=== PATIENT | male | born 1965 | race Caucasian/White ===

== ENCOUNTER 2017-07-09 13:49 | Emergency (ER) | payer OTHER ==
[~2017-07-09] VITALS: Ht 172.7 cm; Wt 84.0 kg
[2017-07-09 13:54] VITALS: BP 128/84; PULSE 90; RESP 20; TEMP 97.5; O2SAT 97
--- NOTE | 2017-07-09 14:20 | PD ---
HPI Chief Complaint: Injury Time Seen by Provider: 14:20 Travel History International Travel<30 days: No Contact w/Intl Traveler<30days: No Traveled to known affect area: No History of Present Illness HPI 52-year-old male presents to the emergency Department with complaint of right knee pain after jumping on a trampoline and his knee giving out. He said it looks as if his knee dislocated and then popped back into place. Denies paresthesias, loss of sensation, decreased range of motion to the affected extremity. Has been ambulatory on the affected extremity, but minimally. Has not taken any medications to alleviate his symptoms. Has applied ice for symptom management. Has no other medical complaints. No known allergies. No other modifying factors or associated signs and symptoms. PFSH Past Medical History Hx Anticoagulant Therapy: No Cardiovascular Problems: No Chemotherapy: No Cerebrovascular Accident: No Diabetes: No Respiratory: No Social History Tobacco Use: No Allergies-Medications (Allergen,Severity, Reaction): Coded Allergies: No Known Allergies (Unverified , 07/09/17) Reported Meds & Prescriptions Reported Meds & Active Scripts Active Ibuprofen 800 Mg Tab 800 Mg PO Q6HR PRN Review of Systems Except as stated in HPI: all other systems reviewed are Neg Physical Exam Narrative GENERAL: Well-nourished, well-developed male patient, in no acute distress; afebrile, nontoxic-appearing SKIN: Warm and dry. HEAD: Atraumatic. Normocephalic. EYES: Pupils equal and round. No scleral icterus. No injection or drainage. ENT: Mucosa pink and moist. Airway patent. NECK: Trachea midline. CARDIOVASCULAR: Regular rate. RESPIRATORY: No accessory muscle use. GASTROINTESTINAL: Flat. MUSCULOSKELETAL: Right knee nonedematous, nonerythematous, and without ecchymosis; full range of motion and flexion to 90; point tenderness to the lateral aspect; joint stable with negative drawer test; no obvious deformity. Right Lower extremity is supple and non-tense with 2+ pedal pulse and sensory intact and without erythema or edema. No edema. No cyanosis. No clubbing. NEUROLOGICAL: Awake and alert. Oriented 3. No obvious cranial nerve deficits. Motor grossly within normal limits. Normal speech. PSYCHIATRIC: Appropriate mood and affect; insight and judgment normal. Data Data Last Documented VS Vital Signs Date Time Temp Pulse Resp B/P (MAP) Pulse Ox O2 Delivery O2 Flow Rate FiO2 07/09/17 13:54 97.5 90 20 128/84 (99) 97 Room Air Orders Orders Knee, Complete (4vws) (07/09/17 14:16) Crutches (07/09/17 14:16) Ketorolac Inj (Toradol Inj) (07/09/17 14:30) Ice/Cold Pack (07/09/17 14:20) MDM Medical Decision Making Medical Screen Exam Complete: Yes Emergency Medical Condition: Yes Medical Record Reviewed: Yes Differential Diagnosis Knee strain, meniscus tear, ACL tear, knee fracture, knee dislocation Narrative Course 52-year-old male with right knee injury. Toradol administered in the ER. Right knee x-ray ordered. 1525: Right knee x-ray with no acute findings. The patient declined knee brace and crutches. Said he is going to buy his own at the drugstore. Ibuprofen prescribed for home. Inserted patient to follow up with orthopedics. Instructed patient to follow up with primary care provider. Patient verbalizes understanding and agreement with treatment plan. Patient is medically cleared and stable for discharge. Discussed reasons to return to the emergency department. Patient agrees with treatment plan. The patients vital signs are stable and the patient is stable for outpatient follow-up and treatment. Patient discharged home, stable and in no acute distress. Diagnosis Primary Impression: Right knee injury Qualified Codes: S89.91XA - Unspecified injury of right lower leg, initial encounter Referrals: Primary Care Physician Patient Instructions: Crutch Instructions (ED), General Instructions, Knee Sprain (ED) Departure Forms: Tests/Procedures Additional Instructions: Tylenol or ibuprofen as needed and as directed to reduce pain and inflammation Rest, ice, compress, and elevate extremity to decrease pain and inflammation Knee brace for support Crutches for support Avoid aggravating activity; increase activity as tolerated Follow-up with primary care provider Follow-up with orthopedics Return to the emergency department immediately with worsening symptoms Med/Other Pt SpecificInfo: Prescription(s) given Scripts Ibuprofen (Ibuprofen) 800 Mg Tab 800 MG PO Q6HR Y for PAIN, #40 TAB 0 Refills Prov: Gem Bailey 07/09/17 Disposition: 01 DISCHARGE HOME Condition: Stable Gem Bailey Jul 09, 2017 14:20
[2017-07-09] MEDS ORDERED: KETOROLAC TROMETHAMINE 60 MG/2 ML (IM) VIAL IM ONE (14:30)
--- NOTE | 2017-07-09 15:15 | RADRPT ---
EXAM DATE/TIME: 07/09/2017 14:27 [facility] COMPARISON: No previous studies available for comparison. INDICATIONS : Patient injured right knee trampolining , he states that he landed on knee and it flexed laterally. MEDICAL HISTORY : None. SURGICAL HISTORY : None. ENCOUNTER: Initial ACUITY: Unknown PAIN SCORE: 9/10 LOCATION: Right knee FINDINGS: Four view examination of the right knee demonstrates no evidence of fracture or dislocation. Bony mi neralization is normal. The articular surfaces are intact. The suprapatellar soft tissues have a no rmal configuration. CONCLUSION: Unremarkable examination of the right knee. Luisa Hill MD on July 09, 2017 at 15:13 Board Certified Radiologist. This report was verified electronically.
[2017-07-09] MEDS ORDERED: IBUP800T23 PO (15:21)
== END 2017-07-09 15:45 | disposition home or self-care (01) ==
LOC: NEPK 13:49
DX: S89.91XA Unspecified injury of right lower leg, initial encounter (principal); X58.XXXA Exposure to other specified factors, initial encounter; Y93.44 Activity, trampolining
CPT/HCPCS: 73564; 96372; 99284; J1885

== ENCOUNTER → 2017-08-09 | Outpatient (CLI) | payer OTHER ==
[~2017-08-09] MED LIST: IBUP800T23 PO
[2017-08-09 09:55] LABS: INTERNATIONAL NORMALIZED RATIO 0.9 RATIO; PROTHROMBIN TIME - PATIENT 10.2 SEC (9.8-11.6)
[2017-08-09 09:55] LABS: BLOOD, URINE NEG (NEG); GLUCOSE,URINE NEG (NEG); KETONE, URINE NEG (NEG); NITRITE,URINE NEG (NEG); PH, URINE 5.5 (5.0-8.5); URINE COLOR LIGHT-YELLOW (YELLW/STRAW)
[2017-08-09 09:59] LABS: COMMENT (UR) CULT NOT INDICATED; CULTURE IF INDICATED CULT NOT INDICATED
--- NOTE | 2017-08-09 10:00 | RADRPT ---
EXAM DATE/TIME: 08/09/2017 09:42 [facility] COMPARISON: KNEE RIGHT COMPLETE (4VWS), July 09, 2017, 14:27. INDICATIONS : Evaluate for pneumonia, pneumothorax, or communicable disease. Pre op for right knee endoscopy. MEDICAL HISTORY : None. SURGICAL HISTORY : None. ENCOUNTER: Initial ACUITY: 1 day PAIN SCORE: 0/10 LOCATION: chest FINDINGS: PA and lateral views of the chest demonstrate the lungs to be symmetrically aerated without evidence of mass, infiltrate or effusion. The cardiomediastinal contours are unremarkable. Osseous structure s are intact. CONCLUSION: 1. No acute cardiopulmonary findings. Isreal Ruiz MD on August 09, 2017 at 9:58 Board Certified Radiologist. This report was verified electronically.
[2017-08-09 10:12] LABS: BICARBONATE 29.4 MEQ/L (21.0-32.0)
--- NOTE | 2017-08-10 15:45 | EKG ---
Date Performed: 08/09/2017 Time Performed: 09:07:01 PTAGE: 52 years EKG: ECTOPIC ATRIAL RHYTHM ABNORMAL RHYTHM ECG NO PREVIOUS TRACING DOCTOR: Tyree Barroso Interpretating Date/Time 08/10/2017 15:43:25
== END ==
LOC: CPRE 08:50
PROVIDERS: ATTEND Orthopaedic Surgery
DX: Z01.810 Encounter for preprocedural cardiovascular examination (principal); Z01.812 Encounter for preprocedural laboratory examination; Z01.818 Encounter for other preprocedural examination; S83.241D Other tear of medial meniscus, current injury, right knee, subsequent encounter; S82.121D Displaced fracture of lateral condyle of right tibia, subsequent encounter for closed fracture with routine healing; R94.31 Abnormal electrocardiogram [ECG] [EKG]; X58.XXXD Exposure to other specified factors, subsequent encounter
CPT/HCPCS: 36415; 71020; 80048; 81001; 85610; 93005

== ENCOUNTER → 2017-08-19 | Day surgery (SDC) | payer OTHER ==
--- NOTE | 2017-08-15 17:44 | MH ---
cc: KORINA MENG M.D. DATE OF ADMISSION 08/19/2017 ADMISSION DIAGNOSIS Medial meniscus tear of the right knee, lateral tibial plateau fracture right knee, partial tear anterior cruciate ligament right knee, effusion right knee, pain right knee, gait disturbance. HISTORY OF THE PRESENT ILLNESS The patient is a 52-year-old white male who sustained an injury to his right knee in June of this year when he was jumping on a trampoline and he sustained a twisting, bending type stress with the immediate onset of pain being noted. He was evaluated on that date in the emergency room of [facility] where x-ray examination was negative for any acute bony abnormality. He was prescribed pain medication and began to utilize crutches as an ambulatory aid while wearing an orthotic knee support that he had purchased at a local drug store. When seen in follow-up disposition by his primary care physician, recommendation was made to proceed with an MRI scan the results of which reported a nondisplaced posterior lateral tibial plateau fracture involving the cortex underneath the posterior horn of the lateral meniscus. A moderate sized joint effusion with associated with indistinct fibers of the anterior cruciate ligament suspicious for at least a grade 2 tear, but possibly a complete tear from its insertion. A large horizontal tear involving the posterior horn and body of the medial meniscus was also noted. The lateral meniscus was reported as being unremarkable. The patient was later seen by the undersigned physician in July of this year and at that time he reported ongoing pain about his right knee with difficulty conforming to weightbearing activities, although he was continuing to work in a usual manner. Treatment options were reviewed at that time. The pros and cons of proceeding with arthroscopic surgery was outlined with emphasis being made that the decision to proceed with surgery would be left entirely to the patient's discretion. The patient considered his options in this regard and returned to the office in follow-up disposition describing ongoing pain about his right knee feeling that he was experiencing difficulty with his daily routine and expressing his desire to proceed with surgery as had previously been discussed. In compliance with his wishes he has currently been scheduled for admission in order that the above be accomplished. PAST MEDICAL HISTORY 1. His past medical history, hospitalizations and surgeries. The patient reports that during his childhood he was admitted to the hospital for cardiac evaluation for a murmur but apparently no additional treatment was required. 2. He has also undergone recent Lasix surgery of both eyes. The patient denies active medical illnesses. MEDICATIONS Current medications include: 1. Advil. 2. He also takes a number of supplements including Echinacea. 3. Multivitamin tablet. 4. Potassium gluconate. 5. Vitamin C. 6. Vitamin B6. 7. Glucosamine. 8. Fish oil. 9. L lysine. 10. Vitamin E. ALLERGIES He denies any known drug allergies. REVIEW OF SYSTEMS No headache, seizure or syncope. No sinus congestion or epistaxis. Auditory acuity intact. No tinnitus. No bleeding gums or dysphagia. Denies cough, shortness of breath, upper respiratory infection, pneumonia or tuberculosis. No angina or heart disease. Appetite is good. Bowel movements are regular. There is been no hepatitis, gallbladder disease, ulcers or hemorrhoids. He has had a history of urinary tract infection. No kidney stones. No prostate disease. Fracture of his left little toe treated nonoperatively. No psychiatric illness. His remaining review of systems is unremarkable and noncontributory. FAMILY HISTORY 23 years, is 52 years of age. She is a breast cancer survivor. One stepdaughter with a history of kidney disease and endometriosis. Family history is otherwise positive for stroke. SOCIAL HISTORY The patient completed a high school education. 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 He admits to at least 20 years of smokeless tobacco but discontinued this habit within the past 6 years. Ethanol consumption on a social basis. PHYSICAL EXAMINATION GENERAL: Height 5 feet 8 inches, weight 185 pounds. An alert, oriented and responsive 52-year-old white male sitting quietly upon examination table with no obvious distress. HEENT: Head, eyes, ears, nose and throat pupils are equally round and reactive to light. Extraocular movements full. Sclerae clear. External nares clear. External auditory canals clear. Dental intact. Mucous membranes pink and moist. Pharynx clear. NECK: Supple. Active range of motion with no significant pain. Carotid pulse palpable bilaterally. Trachea midline. Thyroid without enlargement. LUNGS: Clear to auscultation and percussion. No CVA tenderness. No discomfort throughout the dorsal lumbar spine. HEART: Regular rhythm. No murmur or gallop. ABDOMEN: Soft, nontender. Bowel sounds present. RECTAL: Per primary care physician. EXTREMITIES: Right knee there is a fullness about the knee consistent with an intra-articular effusion. A 20 to 80 degree range of motion with obvious guarding and apprehension demonstrated at the extremes of mobility. No associated crepitation or instability. No collateral ligamentous laxity. Dylon test and drawer sign negative. Pivot shift and Stephon sign are difficult to assess secondary to the patient's discomfort. Distal sensory grossly intact. Antalgic gait. NEUROLOGIC: Cranial nerves II-XII grossly intact. IMPRESSION Medial meniscus tear right knee, lateral tibial plateau fracture right knee, partial tear anterior cruciate ligament right knee, effusion right knee, pain right knee, gait disturbance. PLAN Arthroscopic surgery and possible arthrotomy right knee. The nature of the planned surgical procedure, the potential complications and risks associated, the expectations of surgery and the consent form were thoroughly reviewed with the patient prior to his admission to the hospital. He has indicated his full understanding regarding all of the above and given consent to proceed with treatment as outlined. Medical evaluation and clearance for surgery completed by his primary care physician Dr. Cade. MD BEAU Vaca/KK /5:04 PM /5:17 PM
[~2017-08-19] VITALS: Ht 172.7 cm; Wt 85.4 kg
[~2017-08-19] MED LIST changes: +*MEPERIDINE 25 MG INJ VIAL PERIprocedural Use ONLY ONE; +*morphine SULFATE 8 MG/ML PERIprocedure ONLY ONE; +ACETAMINOPHEN 1000 MG/100 ML 100 ML IV ONE; +ACETAMINOPHEN/HYDROcodone 325 MG/5 MG TAB PO PRN; +CHLORHEXIDINE GLUCONATE 2 % 1 PACK (2 CLOTHS) TOPICAL PRN; +DEXAMETHASONE SOD PHOS 4 MG/ML VIAL IV ONE; +DO NOT ADM ANY ANTICOAGULANT DRUGS PRN; +FAMOTIDINE 20 MG/2 ML VIAL ONE; +INSULIN HUMAN REGULAR 1,000 UNITS/10 ML VIAL SQ PRN; +KETOROLAC TROMETHAMINE 30 MG/ML (IVP) VIAL IV PUSH ONE; +LACTATED RINGER'S 1000 ML INJ 1,000 ML ONE; +LACTATED RINGER'S 1000 ML IV PRN; +LIDOCAINE HCL 1% PF 5 ML AMPULE OTHER ONE; +LIDOCAINE HCL 2% PF SOLN 10 ML VIAL ONE; +METOPROLOL TARTRATE 25 MG TAB PO PRN; +MIDAZOLAM HCL 2 MG/2 ML VIAL IV ONE; +MORPHINE SULFATE 4 MG/ML INJ IM PRN; +ONDANSETRON HCL 4 MG/2 ML VIAL IV PUSH ONE; +POVIDONE IODINE 5% (ANTISEPSIS KIT) 4 APPLICATIONS EACH NARE PRN; +POVIDONE IODINE 7.5% SCRUB 118 ML BOTTLE TOPICAL SCH; +PROMETHAZINE INJ 25 MG/ML VIAL IM PRN; +PROPOFOL 200 MG/20 ML AMP IV ONE; +SODIUM CHLORID 0.9% 500 ML IV PRN; +TRIAMCINOLONE ACETONIDE 40 MG/ML VIAL ONE; +ceFAZolin 2 GM PREMIX 50 ML IV SCH; +ceFAZolin 2 GM PREMIX 50 ML ONE
--- NOTE | 2017-08-19 08:56 | MP ---
cc: KORINA ZUNIGA MD DATE OF SURGERY 08/19/2017 PREOPERATIVE DIAGNOSIS Medial meniscus tear of the right knee, lateral tibial plateau fracture right knee, partial tear anterior cruciate ligament right knee, effusion right knee, pain right knee, gait disturbance. POSTOPERATIVE DIAGNOSIS Medial meniscus tear of the right knee, lateral tibial plateau fracture right knee, partial tear anterior cruciate ligament right knee, effusion right knee, pain right knee, gait disturbance including mild chondromalacia patellae right knee and synovial plica right knee. PROCEDURE Partial medial meniscectomy right knee, debridement of the anterior cruciate ligament, debridement of the patellofemoral joint, and release of synovial plica with partial synovectomy of the suprapatellar region. SURGEON Korina Zuniga MD ANESTHESIA General by LMA FORMAT Following the induction of satisfactory general anesthesia by LMA insertion as completed per the Department of Anesthesia, examination of the right knee did reveal a satisfactory range of motion with no appreciable ligamentous instability. The extremity proper was positioned into the neurosurgical nurse knee mirza, prepped with Betadine solution and draped into a sterile field in the routine manner. Prior to initiation of the actual procedure the standard time-out protocol was completed. All parameters were appropriately addressed and confirmed by operating room personnel. Arthroscopic instrumentation was introduced through stab wound utilizing cannula with sharp and blunt trocar. The inflow irrigation by way of a medial suprapatellar portal. The arthroscope through a lateral parapatellar portal and a probe through a medial parapatellar portal. Examination of the suprapatellar pouch revealed reactive synovium with several bands of fibrotic tissue, old organized clot and a prominent synovial plica. Within the patellofemoral joint, there was mild articular irregularity consistent with localized chondromalacia. Within the medial compartment, there was again noted to be organized clot with reactive synovium and a tear involving the posterior horn of the medial meniscus, articular irregularity along the femoral condyle was noted. Within the intercondylar region, there was fraying of the anterior cruciate ligament, but the body of the structure appeared to be reasonably intact without a full disruption being appreciated. Some difficulty was encountered with visualization of the lateral compartment due to a generalized tightness throughout the compartment as well as reactive synovium extending into the lateral compartment region. Attention was redirected to the medial compartment. Utilizing both a biting suction forceps, as well as a 3.8 mm Saber resector, a partial medial meniscectomy was accomplished as well as debridement of the femoral condyle and resection of reactive synovium. Additional debridement was thereafter extended into the intercondylar region involving the frayed portion of the anterior cruciate ligament, as well as reactive synovium extending beyond the intercondylar region and into the lateral compartment. Attention was thereafter redirected to the patellofemoral joint and the suprapatellar region. A chondroplasty was accomplished as well as a release of the synovial plica and a partial synovectomy involving reactive synovium organized clot and bands of fibrotic tissue. Upon completion of same, the joint space was thoroughly lavaged and suctioned dry and intra-articular Kenalog lidocaine injection was completed. The portal sites were reapproximated with Steri-Strips over which Xeroform gauze and a bulky dry sterile dressing were placed. Anesthesia was discontinued. The patient was thus transferred to a hospital stretcher and returned to the recovery room in satisfactory condition having tolerated his operative procedure well. Estimated blood loss was less than 10 cc. MD BEAU Vaca/CULLEN /8:29 AM /8:44 AM
[2017-08-19 10:00] VITALS: BP 118/66; PULSE 65; RESP 20; TEMP 97.8; O2SAT 99
== END | disposition home or self-care (01) ==
LOC: HSDC 05:21
PROVIDERS: ATTEND Orthopaedic Surgery
DX: S83.241A Other tear of medial meniscus, current injury, right knee, initial encounter (principal); S83.511A Sprain of anterior cruciate ligament of right knee, initial encounter; M67.51 Plica syndrome, right knee
CPT/HCPCS: 01400; 29881; J0131; J0690; J1100; J1885; J2175; J2250; J2270; J2405; J3010; J3301; J7120